=== PATIENT | female | born 1980 | race Caucasian/White ===

== ENCOUNTER 2017-05-10 17:55 | Emergency (ER) | payer MEDICAID, OTHER ==
[2017-05-10] MEDS ORDERED: ACETAMINOPHEN 325 MG TABLET PO ONE (19:40)
--- NOTE | 2017-05-10 19:41 | ER Document Report ---
ED Medical Screen (RME) - General Chief Complaint: Abdominal Pain Stated Complaint: ABDOMINAL PAIN,LIGHTHEADED Time Seen by Provider: 05/10/17 19:40 Notes: Patient states she started with left-sided abdominal pain today that gradually increased. She had some nausea and diarrhea. She has had decreased appetite. She states she does have a history of diverticulitis. She was initially seen today in urgent care but they referred her to the emergency department. She states that urgent care they gave her a shot of Toradol and now her pain is better but still present. She asked if she could have some Tylenol for her headache. Patient states that she has also had a previous hysterectomy and a hernia repair with mesh. TRAVEL OUTSIDE OF THE [place] IN LAST 30 DAYS: No - Related Data Allergies/Adverse Reactions: No Known Allergies Allergy (Unverified 05/10/17 18:38) Past Medical History Renal/ Medical History: Denies: Hx Peritoneal Dialysis Physical Exam - Vital signs Vitals: Temp Pulse Resp BP Pulse Ox 99.7 F 87 16 130/97 H 97 05/10/17 18:35 05/10/17 18:35 05/10/17 18:35 05/10/17 18:35 05/10/17 18:35 Course - Vital Signs Vital signs: Temp Pulse Resp BP Pulse Ox 99.7 F 87 16 130/97 H 97 05/10/17 18:35 05/10/17 18:35 05/10/17 18:35 05/10/17 18:35 05/10/17 18:35
[2017-05-10 20:14] LABS: ABSOLUTE BASOPHILS # (AUTO) 0.1 10^3/uL (0.0-0.2); ABSOLUTE EOSINOPHILS # (AUTO) 0.1 10^3/uL (0.0-0.6); ABSOLUTE LYMPHOCYTES (AUTO) 2.9 10^3/uL (0.5-4.7); ABSOLUTE NEUT (AUTO) 9.8 10^3/uL (1.7-8.2); BASOPHILS % (AUTO) 0.4 % (0-2); EOSINOPHILS % (AUTO) 0.9 % (0-6); HEMATOCRIT 41.9 % (36.0-47.0); HEMOGLOBIN 14.4 g/dL (12.0-15.5); HGB HCT DIFFERENCE 1.3; MEAN CORPUSCULAR HEMOGLOBIN 32.9 pg (27.0-33.4); MEAN CORPUSCULAR HGB CONC 34.5 g/dL (32.0-36.0); MEAN CORPUSCULAR VOLUME 96 fl (80-97); MONOCYTES % (AUTO) 7.3 % (3-13); RED BLOOD COUNT 4.39 10^6/uL (3.72-5.28); SEGMENTED NEUTROPHILS % (AUTO) 70.4 % (42-78); WHITE BLOOD COUNT 13.9 10^3/uL (4.0-10.5)
[2017-05-10 20:21] LABS: APPEARANCE,URINE SLIGHTLY-CLOUDY; BILIRUBIN,URINE NEGATIVE (NEGATIVE); GLUCOSE, URINE NEGATIVE (NEGATIVE); KETONES,URINE NEGATIVE (NEGATIVE); LEUKOCYTE ESTERASE,URINE NEGATIVE (NEGATIVE); NITRITE,URINE NEGATIVE (NEGATIVE); PROTEIN,URINE NEGATIVE (NEGATIVE); URINE SPECIFIC GRAVITY 1.023; UROBILINOGEN,URINE NEGATIVE mg/dL (<2.0)
[2017-05-10 20:34] LABS: ALANINE AMINOTRANSFERASE 27 U/L (9-52); ALBUMIN 4.5 g/dL (3.5-5.0); ALKALINE PHOSPHATASE 63 U/L (38-126); ANION GAP 13 (5-19); ASPARTATE AMINO TRANSFERASE 21 U/L (14-36); BILIRUBIN,DIRECT 0.3 mg/dL (0.0-0.4); BILIRUBIN,TOTAL 0.8 mg/dL (0.2-1.3); BLOOD UREA NITROGEN 13 mg/dL (7-20); CALCIUM 9.7 mg/dL (8.4-10.2); CARBON DIOXIDE 24 mmol/L (22-30); CHLORIDE 99 mmol/L (98-107); CREATININE RESULT 0.81 mg/dL (0.52-1.25); GLUCOSE 82 mg/dL (75-110); SODIUM 136.4 mmol/L (137-145); TOTAL PROTEIN 7.5 g/dL (6.3-8.2)
[2017-05-10] MEDS ORDERED: MORPHINE SULFATE 10 MG/ML INJ IV ONE (21:11)
[2017-05-10] MEDS ORDERED: NORMAL SALINE 1000 ML 1,000 ML IV ONE (21:11)
[2017-05-10] MEDS ORDERED: ONDANSETRON HCL INJ/PF 4 MG/2 ML SDV IV ONE (21:11)
--- NOTE | 2017-05-10 21:11 | ER Document Report ---
ED GI/ - General Mode of Arrival: Ambulatory Information source: Patient TRAVEL OUTSIDE OF THE [place] IN LAST 30 DAYS: No - HPI Patient complains to provider of: Abdominal pain Onset: Yesterday Similar symptoms previously: Yes Recently seen / treated by doctor: Yes <DEBRA DESIR - Last Filed: 05/10/17 22:20> <LUIS CARLOS GEE - Last Filed: 05/11/17 01:24> - General Chief Complaint: Abdominal Pain Stated Complaint: ABDOMINAL PAIN,LIGHTHEADED Time Seen by Provider: 05/10/17 19:40 Notes: Patient is a 37-year-old female who presents to the emergency department today with complaints of lower abdominal pain. Patient was seen in an urgent care prior to arrival here who sent her here to be evaluated. Patient states she has had frequent bouts with diverticulitis in the past. Patient states her pain today is similar to her previous diverticulitis flares. (DEBRA DESIR) - Related Data Allergies/Adverse Reactions: No Known Allergies Allergy (Unverified 05/10/17 18:38) Past Medical History - General Information source: Patient - Social History Smoking Status: Never Smoker Frequency of alcohol use: None Drug Abuse: None Lives with: Family Family History: Reviewed & Not Pertinent Patient has suicidal ideation: No Patient has homicidal ideation: No - Past Medical History Cardiac Medical History: Reports: Hx Hypertension Surgical Hx: Negative <DEBRA DESIR - Last Filed: 05/10/17 22:20> Review of Systems - Review of Systems Constitutional: No symptoms reported EENT: No symptoms reported Cardiovascular: No symptoms reported Respiratory: No symptoms reported Gastrointestinal: See HPI, Abdominal pain Genitourinary: No symptoms reported Female Genitourinary: No symptoms reported Musculoskeletal: No symptoms reported Skin: No symptoms reported Hematologic/Lymphatic: No symptoms reported Neurological/Psychological: No symptoms reported -: Yes All other systems reviewed and negative <DEBRA DESIR - Last Filed: 05/10/17 22:20> Physical Exam <DEBRA DESIR - Last Filed: 05/10/17 22:20> <LUIS CARLOS GEE - Last Filed: 05/11/17 01:24> - Vital signs Vitals: Temp Pulse Resp BP Pulse Ox 99.7 F 87 16 130/97 H 97 05/10/17 18:35 05/10/17 18:35 05/10/17 18:35 05/10/17 18:35 05/10/17 18:35 - Notes Notes: Physical Exam: General: Alert, appears well. HEENT: Normocephalic. Atraumatic. PERRL. Extraocular movements intact. Oropharynx clear. Neck: Supple. Non-tender. Respiratory: No respiratory distress. Clear and equal breath sounds bilaterally. Cardiovascular: Regular rate and rhythm. Abdominal: Left lower quadrant tenderness. No distension. Decreased Bowel Sounds. Back: Non-tender. No deformity or step off. Extremities: Moves all four extremities. Upper extremities: Normal inspection. Normal ROM. Lower extremities: Normal inspection. No edema. Normal ROM. Neurological: Normal cognition. AAOx4. Normal speech. Psychological: Normal affect. Normal Mood. Skin: Warm. Dry. Normal color. (DEBRA DESIR) Course - Laboratory Result Diagrams: 05/10/17 19:48 05/10/17 19:48 <DEBRA DESIR - Last Filed: 05/10/17 22:20> - Laboratory Result Diagrams: 05/10/17 19:48 05/10/17 19:48 - Diagnostic Test Radiology reviewed: Image reviewed, Reports reviewed - Multiple diverticular disease, inflammation with a small amount of fluid at the left colon proximal sigmoid junction consistent with acute diverticulitis <LUIS CARLOS GEE - Last Filed: 05/11/17 01:24> - Vital Signs Vital signs: Temp Pulse Resp BP Pulse Ox 99.7 F 87 16 130/97 H 97 05/10/17 18:35 05/10/17 18:35 05/10/17 18:35 05/10/17 18:35 05/10/17 18:35 - Laboratory Laboratory results interpreted by me: 05/10/17 05/10/17 19:48 19:48 WBC 13.9 H Absolute Neutrophils 9.8 H Sodium 136.4 L Discharge <DEBRA DESIR - Last Filed: 05/10/17 22:20> <LUIS CARLOS GEE - Last Filed: 05/11/17 01:24> - Discharge Clinical Impression: Diverticulitis Qualifiers: Diverticulitis site: large intestine Diverticulitis bleeding: without bleeding Diverticulitis complication: without perforation or abscess Qualified Code(s): K57.32 - Diverticulitis of large intestine without perforation or abscess without bleeding Condition: Stable Disposition: HOME, SELF-CARE Additional Instructions: Diverticulitis: You have been diagnosed as having diverticulitis. This is an inflammation of a small pouch attached to the colon, called a diverticulum. Many of these small pouches can form on the colon as you get older. They are often caused by constipation. When inflamed or infected, symptoms arise -- usually abdominal pain, constipation or diarrhea, fever, and blood in the stool. Severe diverticulitis may require hospitalization. More mild cases are usually treated with antibiotics and clear liquid diet. As you improve, a diet low in residue (one which forms little stool) is prescribed. When you are better, you should eat a high-fiber diet. Stool softeners ( like Metamucil) are usually recommended. Call the doctor or go to the hospital if there is increasing pain, vomiting , high fever, large amounts of blood passed, or if bowel movements cease. TAKE THE MEDICATIONS PRESCRIBED. DRINK PLENTY OF FLUIDS. FOLLOW UP WITH [facility] TO DISCUSS MANAGEMENT OF YOUR DIVERTICULAR DISEASE. RETURN TO THE EMERGENCY ROOM IF ANY NEW OR WORSENING SYMPTOMS. Prescriptions: Ciprofloxacin HCl [Cipro 750 mg Tablet] 750 mg PO BID #20 tablet Hydrocodone/Acetaminophen [Hydrocodon-Acetaminophen 5-325] 1 each PO Q4 PRN #15 tablet PRN Reason: For Pain Metronidazole [Flagyl 500 mg Tablet] 500 mg PO QID #40 tablet Referrals: [facility] [Provider Group] - Follow up in 1 week Yajairaibzahraa Attestation: 05/11/17 01:24 I personally performed the services described in the documentation, reviewed and edited the documentation which was dictated to the scribe in my presence, and it accurately records my words and actions. (LUIS CARLOS GEE) Scribe Documentation - Scribe Written by Megan:: Megan Mercedes, 05/10/2017 [id number] acting as scribe for :: [place] <DEBRA DESIR - Last Filed: 05/10/17 22:20>
[2017-05-11] MEDS ORDERED: METRONIDAZOLE 500 MG TABLET PO ONE (01:21)
[2017-05-11] MEDS ORDERED: CIPROFLOXACIN HCL 750 MG TABLET PO ONE (01:21)
[2017-05-11] MEDS ORDERED: HYDROCODONE/ACETAMINOPHEN 5-325 MG 6 TAB/DSPK PO PRN (01:24)
--- NOTE | 2017-05-11 01:38 | RADIOLOGY REPORT (SQ) ---
EXAM DESCRIPTION: CT ABD/PELVIS WITH IV ORAL COMPLETED DATE/TIME: 05/11/2017 12:32 am REASON FOR STUDY: LLQ pain, PMH diverticulitis COMPARISON: None. TECHNIQUE: CT scan of the abdomen and pelvis performed using helical scanning technique with dynamic intravenous contrast injection. No oral contrast. Images reviewed with lung, soft tissue, and bone windows. Reconstructed coronal and sagittal MPR images reviewed. Delayed images for evaluation of the urinary system also acquired. All images stored on PACS. All CT scanners at this facility use dose modulation, iterative reconstruction, and/or weight based d osing when appropriate to reduce radiation dose to as low as reasonably achievable (ALARA). [facility]: Dose Right [facility]: CareDose [facility]: Dose Right [facility]: Teradose 4D [facility]: [employer] CONTRAST TYPE AND DOSE: contrast/concentration: Isovue 370.00 mg/ml; Total Contrast Delivered: 100.0 ml; Total Saline Delivered: 70.0 ml RENAL FUNCTION: Creatinine 0.8. RADIATION DOSE: Up-to-date CT equipment and radiation dose reduction techniques were employed. CTDIv ol: 20.4 mGy. DLP: 2409 mGy-cm.. LIMITATIONS: None. FINDINGS: LOWER CHEST: No significant findings. No nodules or infiltrates. LIVER: Normal size. No masses. No dilated ducts. SPLEEN: Normal size. No focal lesions. PANCREAS: No masses. No significant calcifications. No adjacent inflammation or peripancreatic fluid collections. Pancreatic duct not dilated. GALLBLADDER: No identified stones by CT criteria. No inflammatory changes to suggest cholecystitis. ADRENAL GLANDS: No significant masses or asymmetry. RIGHT KIDNEY AND URETER: No solid masses. No significant calcifications. No hydronephrosis or hyd roureter. LEFT KIDNEY AND URETER: No solid masses. No significant calcifications. No hydronephrosis or hydr oureter. AORTA AND VESSELS: No aneurysm. No dissection. Renal arteries, SMA, celiac without stenosis. RETROPERITONEUM: No retroperitoneal adenopathy, hemorrhage or masses. BOWEL AND PERITONEAL CAVITY: Moderate diverticulitis pattern at the junction of the left colon and si gmoid includes adhesive fat inflammation and associated mild mural thickening. No significant fluid collection. No abscess. Extensive colonic diverticulosis of the left colon and sigmoid. APPENDIX: Normal. PELVIS: No mass. No free fluid. Normal bladder. Uterus is surgically absent. ABDOMINAL WALL: No masses. No hernias. BONES: 1.5 cm chronic fragmentation of the left L4 transverse process. OTHER: Bilateral mammary prostheses. IMPRESSION: Acute diverticulitis at the junction of the left colon and sigmoid. No drainable fluid collection. COMMENT: Discussed with Dr. Juanita Sarah, 05/11/17, 12:50 AM. TECHNICAL DOCUMENTATION: JOB ID: [id number] Quality ID # [id number]: Final reports with documentation of one or more dose reduction techniques (e.g., Au tomated exposure control, adjustment of the mA and/or kV according to patient size, use of iterative reconstruction technique) 2010 [employer]- All Rights Reserved
[2017-05-11 01:46] VITALS: BP 122/89
== END 2017-05-11 01:46 | disposition home or self-care (01) ==
LOC: ER 17:55
DX: K57.32 Diverticulitis of large intestine without perforation or abscess without bleeding (principal); R10.9 Unspecified abdominal pain; R10.30 Lower abdominal pain, unspecified
CPT/HCPCS: 99284; 36415; 85025; 80053; 81001; 74177; J2270; J2405; J3490; J7030